=== PATIENT | male | born 1990 | race Caucasian/White ===

== ENCOUNTER 2018-03-11 21:24 | Emergency (ER) | payer OTHER ==
[~2018-03-11] VITALS: Ht 180.3 cm; Wt 86.2 kg
[2018-03-11 21:40] VITALS: BP 157/119
[2018-03-11] MEDS ORDERED: BACTRIM DS TAB1 EAC1 PO (21:47)
== END 2018-03-11 21:56 | disposition home or self-care (01) ==
LOC: M.ERS 21:24
DX: L02.414 Cutaneous abscess of left upper limb (principal)

== ENCOUNTER 2019-08-05 12:54 | Emergency (ER) | payer OTHER ==
[~2019-08-05] VITALS: Ht 180.3 cm; Wt 70.3 kg
[~2019-08-05 12:54] MED LIST: BACTRIM DS TAB1 EAC1 PO
[2019-08-05 13:59] LABS: ABSOLUTE EOSINOPHILS 0.1 thou/uL (0.0-0.7); ABSOLUTE LYMPHOCYTES 1.6 thou/uL (0.8-5.3); ABSOLUTE MONOCYTES 0.6 thou/uL (0.0-1.2); ABSOLUTE NEUTROPHILS 4.8 thou/uL (1.6-8.1); BASOPHILS 0.5 %; HEMATOCRIT 45.8 % (42.0-52.0); HEMOGLOBIN 16.1 gm/dL (14.0-18.0); LYMPHOCYTES 22.1 %; MCH 32.6 pg (26.0-34.0); MCHC 35.3 g/dL (28.0-37.0); MCV 92.5 fL (80.0-100.0); MONOCYTES 7.9 %; MPV 8.7 fl. (7.2-11.1); NUCLEATED RBCS 0 /100WBC; PLATELET COUNT* 218 thou/uL (150-400); POLYS 68.5 %; RBC 4.95 mil/uL (4.50-6.00); RDW-CV 12.9 % (10.5-14.5); WBC 7.1 thou/uL (4.0-11.0)
[2019-08-05 14:00] LABS: CALCIUM 9.3 mg/dL (8.5-10.1); CREATININE 0.9 mg/dL (0.6-1.3); POTASSIUM 3.8 mmol/L (3.5-5.1)
[2019-08-05 14:04] LABS: ALBUMIN 4.1 g/dL (3.4-5.0); TOTAL BILIRUBIN 1.5 mg/dL (<0.1-1.0); TOTAL PROTEIN 6.8 g/dL (6.4-8.2)
[2019-08-05 14:20] LABS: URINE BILIRUBIN NEGATIVE (Negative); URINE BLOOD NEGATIVE (Negative); URINE CLARITY CLEAR; URINE COLOR YELLOW; URINE GLUCOSE-RANDOM NEGATIVE (Negative); URINE KETONES 2+ (Negative); URINE LEUKOCYTES-REFLEX NEGATIVE (Negative); URINE NITRITE-REFLEX NEGATIVE (Negative); URINE PROTEIN NEGATIVE (Negative); URINE UROBILINOGEN 0.2 E.U./dl (0.2-1.0)
[2019-08-05 15:39] VITALS: BP 141/80
--- NOTE | 2019-08-06 12:23 | EKG ---
[place] [address] ELECTROCARDIOGRAM REPORT Name: FIDEL STEINBERG JR [id number] Admission: 08/05/19 Attend Phys: Discharge: 08/05/19 Date of : 89 Report #: [id number] THIS REPORT FOR: //name// [facility] ED Test Date: 2019-08-05 Test Time: 13:28:56 Pat Name: FIDEL STEINBERG Department: Room: Gender: M Restaurant Inspector: REBEKAH : 1990 Requested By: Wale Marino Order Number: [id number] MD: Joshua Kohler Measurements Intervals [place] Rate: 67 P: -18 [place]: 126 QRS: 73 QRSD: 100 T: 42 QT: 406 QTc: 429 Interpretive Statements Sinus rhythm Baseline wander in lead(s) I,III,aVL No previous ECG available for comparison Electronically Signed On 08-06-2019 12:22:45 LIBRARY CIRCULATION ASSISTANT by Joshua Kohler [email or web address] <ELECTRONICALLY SIGNED> By: Joshua Kohler MD, [facility] 08/06/19 1222 1328 [id number] Joshua Kohler MD, FACC /EPI
== END 2019-08-05 15:41 | disposition home or self-care (01) ==
LOC: M.ERS 12:54
PROVIDERS: Family Medicine
DX: K52.9 Noninfective gastroenteritis and colitis, unspecified (principal)